=== PATIENT | female | born 1995 | race Caucasian/White ===

== ENCOUNTER → 2024-03-21 | Outpatient (CLI) | payer BC, SELFPAY ==
[2024-03-21 12:12] LABS: Absolute Lymphocyte Count 1.58 X10^3/uL (0.83-4.51); Absolute Neutrophil Count 5.2 X10^3/uL (2.0-7.7); Basophil# 0.04 X10^3/uL; Basophil% 0.5 % (0-1); Eosinophil# 0.42 X10^3/uL; Eosinophils% 5.4 % (0-5); Hematocrit 35.1 % (37-47); Hemoglobin 12.3 g/dL (12.0-15.0); Lymphocyte # 1.58 X10^3/ul (0.83-4.51); Lymphocyte % 20.3 % (19-41); Mean Corpuscular Hgb 31.5 pg (27.0-32.0); Mean Corpuscular Volume 89.8 fL (81-99); Mean Platelet Vol. 11.1 fl (6.2-12.0); Monocyte# 0.53 X10^3/uL; Monocyte% 6.8 % (0-10); NRBC Flagged by Analyzer 0 % (0-5); Neutrophil # 5.18 X10^3/uL (2.7-7.7); Neutrophil % 66.5 % (47-70); Platelet Count 206 K/mm3 (150-450); RBC Distribution Width CV 12.2 % (11.6-14.6); RBC Distribution Width SD 39.9 fl (35.1-43.9); Red Blood Count 3.91 M/mm3 (4.2-5.4); White Blood Count 7.8 K/mm3 (4.4-11.0)
[2024-03-21 13:08] LABS: HIV - WCH Non-Reactive (Nonreactive); Hepatitis B Surface Antigen Non-Reactive (Nonreactive); Hepatitis C Antibody Non-Reactive (Nonreactive); Rubella IgG Reactive (Nonreactive); Syphilis Antibodies Non-reactive
[2024-03-22 22:07] LABS: Chlamydia By Nucleic Acid AMP Negative (Negative); Gonococcus By Nucleic Acid AMP Negative (Negative)
[2024-03-25 14:42] LABS: HPV Reflexed? NOT INDICATED
== END | disposition home or self-care (01) ==
LOC: BWCLAB 09:57
PROVIDERS: PCP Pediatrics; Referring Provider Advanced Practice Midwife; Visit Provider Advanced Practice Midwife
DX: O99.891 Other specified diseases and conditions complicating pregnancy (principal); R87.618 Other abnormal cytological findings on specimens from cervix uteri; B97.7 Papillomavirus as the cause of diseases classified elsewhere; Z3A.00 Weeks of gestation of pregnancy not specified
CPT/HCPCS: 36415; 85025; 86703; 86762; 86780; 86803; 86850; 86900; 86901; 87086; 87088; 87340; 87491; 87591; 88175; G0145

== ENCOUNTER 2024-04-14 17:09 | Emergency (ER) | payer BC, SELFPAY ==
[2024-04-14 17:10] VITALS: BP 124/70; PULSE 88; RESP 18; TEMP 36.4; O2SAT 99
--- NOTE | 2024-04-14 17:21 | EDS_ITS ---
HPI HPI - Female History of Present Illness Chief Complaint: Vag Bld, Preg Detail of Chief Complaint: Post trimester vaginal bleeding Informant: patient Pain Pain: Positive for Pelvic Pain (Cramping, 45 minutes prior to presentation) Onset: Hours Context: Sudden Onset Timing: Continuous Quality: Positive for - (Cramping) Location: - (Pelvic/vaginal) Current Severity: Mild Maximum Severity: Mild Worsened by: - (Nothing) Relieved by: - (Nothing) Bleeding Issue: Positive for Vaginal bleeding; Negative for Passing clots or Passing tissue Onset: Hours (45 minutes prior to presentation. Patient was showering when she noted blood trickling down her leg.) Associated Symptoms Associated Symptoms: Positive for Frequency; Negative for Dysuria, Urgency or Hematuria Test: Positive Sexually: Positive for Active Control: No control P: 0 Ab: 0 Narrative Narrative: Patient is a 28-year-old G1, P0 Ab0 female who is approximately 13 weeks gestation. She had a ultrasound at Dr. Cannon/Migue's office that revealed a single live intrauterine . Patient has a positive blood. This was determined after reviewing prior records. There is no history of STI. There is no history of endometriosis. There is history of ovarian cyst. Patient denies fever, chills night sweats. Patient has shortness of breath orthostatic symptoms. She does report mild cramping pain. She thought that was due to the way she was sitting in the car. She contacted OB on-call. She spoke with practitioner Freeman who recommended she come to the emergency department. Prior similar symptoms: No Recent Illness/Hospitalization: No PFSH PFSH Medical History no medical history no medical history Home Medications ?Medication ?Instructions ?Recorded ?Last Taken ?Type multivitamin no.47-iron fum 27 cap PO 03/05/24 Unknown History mg-folate no.1 1 mg-dha 300 mg capsule (PNV-DHA) Allergy/AdvReac Type Severity Reaction Status Date / Time No Known Allergies Allergy Verified 04/14/24 17:10 Family History Grandmother Cancer, Onset Age: 50 Paternal cervical cancer Diabetes Maternal Dementia, Onset Age: 78 Maternal Grandfather Cancer, Onset Age: 68 Paternal Pancreatic Diabetes, Onset Age: 60 Maternal Aunt Breast cancer, Onset Age: 45 Paternal Mother Fibromyalgia Psoriasis Cancer, Onset Age: 45 Skin cancer- melanoma Father Cancer, Onset Age: 50 skin- basal cell Surgical History [employer] teeth extracted Social History adopted: No household members: spouse and family current occupational status: employed current occupation: interior design current occupational exposures/hazards: No pets and animals: Yes (Avoid litter box) pets and animals: cat(s) and dog(s) history of recent travel: No sexually active: Yes Smoking Status: Never smoker alcohol intake: never substance use type: does not use well-balanced diet: about half the time caffeine: No eating out: rarely or never during the past year weight has: decreased > 10 lbs what type of physical activity do you participate in: other details: crossfit- modified frequency: 3-4 times per week duration: 45-60 minutes/day rubin/bahai: None seatbelt use: always do you feel safe at home: Yes additional social history: - [employer] ROS ROS ED Constitutional Constitutional ED: Denies chills or fever(s) Cardiovascular Cardiovascular: Denies chest pain or palpitations Respiratory/Chest Respiratory/Chest: Denies cough, dyspnea or dyspnea on exertion Gastrointestinal Gastrointestinal: Denies abdominal pain, nausea or vomiting Genitourinary Genitourinary ED: Reports urinary frequency and other Details: Positive vaginal bleeding. No clots noted. ; Denies dysuria or hematuria Musculoskeletal Musculoskeletal: Denies arthralgias or myalgias Integumentary Denies rash Neurologic Neurologic: Denies weakness Hematologic/Lymphatic Hematologic/Lymphatic: Denies easy bleeding or easy bruising EXAM Physical Exam Const Vital Signs: 04/14/24 17:10 04/14/24 19:09 Temperature 97.6 F L Temperature Source Temporal Pulse Rate 88 89 Respiratory Rate 18 16 Blood Pressure 124/70 H 117/57 L Blood Pressure Mean 88 77 Pulse Ox 99 98 Oxygen Delivery Method Room Air Room Air Positive well nourished and well developed Constitutional Narrative: Patient is slightly anxious. Vital signs are normal. General Appearance ED: well developed and NAD; Negative for pallor HEENT Reports moist mucous membranes HEENT Narrative: Head is atraumatic and normocephalic. Eyes PERRL and EOMs intact bilaterally General Eye ED: Negative for pale conjunctiva or scleral icterus Neck no lymphadenopathy, supple and no JVD Resp normal respiratory effort and clear to auscultation bilaterally Cardio regular rate, regular rhythm, S1 normal heart sound, no murmurs and no JVD GI normal to inspection, nondistended, normoactive bowel sounds, soft to palpation, non-tender, non-distended and no masses Extremity normal to inspection and full ROM General Extremety ED: Negative for edema General Extremity: Negative for edema Neuro oriented x3 and CN's II-XII intact bilaterally Neuro Narrative: Gait observed and normal. Sensorium / Orientation: alert Psych Mood & Affect: anxious Skin no rashes or lesions noted and no wounds General Skin Exam: Negative for jaundice or pallor MDM MDM MDM Narrative Medical decision making narrative: Patient with first trimester bleeding. Review of records from March 21 revealed that she has a single live and uterine . Quantitative hCG was not done at that time. Patient does have a positive blood. Patient's bleeding started 45 minutes prior to presentation. Will perform pelvic exam and determine the and. Will have nurse check for heart tones. Spoke with psychometrist Deepthi Millard. She informing that she did not tell the patient she would get an ultrasound. She told me that we will check heart tones and probably do a bedside ultrasound. Explained again that there was someone critical and reason there was a delay. They are now understanding. heart tones were 162. Transabdominal bedside ultrasound performed by me reveals a heartbeat of 1 50-1 60. There is a single live intrauterine noted. There is no obvious subchorionic psychometrist Deepthi Millard was informed of my bedside ultrasound report. She will call patient later this evening. This was conveyed to the patient and her mother. Lab Data Attestation: I reviewed the patient's lab results. Lab results narrative: CBC is unremarkable. Patient's quantitative hCG is 88,027 which corresponds with her dates. Labs: Laboratory Results - last 24 hr 04/14/24 17:29 WBC 9.2 RBC 3.90 L Hgb 12.4 Hct 35.1 L MCV 90.0 MCH 31.8 MCHC 35.3 RDW Std Deviation 41.1 RDW Coeff of Esther 12.5 Plt Count 193 MPV 10.4 Immature Gran % (Auto) 0.500 Neut % (Auto) 73.7 H Lymph % (Auto) 17.0 L [place] % (Auto) 5.7 Eos % (Auto) 2.7 Baso % (Auto) 0.4 Absolute Neuts (auto) 6.7 Absolute Lymphs (auto) 1.56 Nucleated RBC % 0 HCG, Quant 45699 H Treatment and Re-Evaluation Narrative: Patient had a transabdominal ultrasound which reveals a single live intrauterine with a heart rate of 1 50-1 60. There is no obvious subchorionic hemorrhage. Patient was informed I do not have the skill set or capability with a transabdominal ultrasound to determine if there is any abnormality of the cervix. They understand this. They have an appointment to be seen later. Discharge Plan Triage Chief Complaint: Vag Bld, Preg ED Provider: Indio Kumar Dx/Rx/DC Orders Clinical Impression: Vaginal bleeding in patient after first trimester, HPV (human papilloma virus) infection, Abnormal Papanicolaou smear of cervix with positive human papilloma virus (HPV) test Instructions: Miscarriage Threatened Prescriptions: No Action PNV-DHA 27 mg iron-1 mg -300 mg capsule PO Primary Care Provider: Zelda Moura Referrals: Sophy Antony DO [Med Staff - Active Staff] - Keep Bhavna appointment Zelda Moura MD [Primary Care Provider] - Activity Restrictions/Additional Instructions: Reasons to return: Vaginal bleeding with change of pad every hour x 4 hours Passing clots that are concerning to you If you have significant bleeding with gush of blood call 911 Pelvic rest. No pelvic activity as long as you have vaginal bleeding. Print Language: Ukrainian Disposition Disposition: Home, Self Care
[2024-04-14 17:40] LABS: Absolute Lymphocyte Count 1.56 X10^3/uL (0.83-4.51); Absolute Neutrophil Count 6.7 X10^3/uL (2.0-7.7); Basophil# 0.04 X10^3/uL; Basophil% 0.4 % (0-1); Eosinophil# 0.25 X10^3/uL; Eosinophils% 2.7 % (0-5); Hematocrit 35.1 % (37-47); Hemoglobin 12.4 g/dL (12.0-15.0); Lymphocyte # 1.56 X10^3/ul (0.83-4.51); Mean Corp Hgb Conc 35.3 g/dL (32-36); Mean Corpuscular Hgb 31.8 pg (27.0-32.0); Mean Platelet Vol. 10.4 fl (6.2-12.0); Monocyte# 0.52 X10^3/uL; Monocyte% 5.7 % (0-10); NRBC Flagged by Analyzer 0 % (0-5); Neutrophil # 6.74 X10^3/uL (2.7-7.7); Neutrophil % 73.7 % (47-70); Platelet Count 193 K/mm3 (150-450); RBC Distribution Width CV 12.5 % (11.6-14.6); RBC Distribution Width SD 41.1 fl (35.1-43.9); White Blood Count 9.2 K/mm3 (4.4-11.0)
[2024-04-14 18:41] LABS: hCG Titer Quant., Serum 88027 mIU/mL (1-3)
[2024-04-14 19:09] VITALS: BP 117/57; PULSE 89; RESP 16; O2SAT 98
--- NOTE | 2024-04-14 19:10 | ED.RN ---
Pts mother came out and asked to speak to the supervisor nurse. I spoke to mom and pt. Pt was tearful and stated that she really didn't want the pelvic exam and that they were told from the store loss prevention manager that they would do an ultrasound. I explained that sometimes after the pelvic they decide whether or not to do an US or not. Pt stated that she isn't bleeding as much at this point. I did FHT and it was 165. Dr Kumar is going to talk to the OB provider and do a bedside US. Pt and mom were ok with this plan.
[2024-04-14 19:17] VITALS: BMI 27.8
[2024-04-14 19:33] VITALS: BP 111/74; PULSE 91; RESP 18; TEMP 36.6; O2SAT 99
== END 2024-04-14 19:35 | disposition home or self-care (01) ==
PROVIDERS: Emergency Provider Emergency Medicine; PCP Pediatrics; Visit Provider Emergency Medicine
DX: O20.9 Hemorrhage in early pregnancy, unspecified (principal); O99.891 Other specified diseases and conditions complicating pregnancy; R87.618 Other abnormal cytological findings on specimens from cervix uteri; O98.511 Other viral diseases complicating pregnancy, first trimester; R87.811 Vaginal high risk human papillomavirus (HPV) DNA test positive; Z3A.13 13 weeks gestation of pregnancy
CPT/HCPCS: 84702; 85025; 99282

== ENCOUNTER → 2024-07-22 | Outpatient (CLI) | payer BC, SELFPAY ==
[2024-07-22 10:24] LABS: Absolute Lymphocyte Count 1.57 X10^3/uL (0.83-4.51); Absolute Neutrophil Count 6.9 X10^3/uL (2.0-7.7); Basophil# 0.03 X10^3/uL; Basophil% 0.3 % (0-1); Eosinophils% 4.2 % (0-5); Hematocrit 30.5 % (37-47); Hemoglobin 10.4 g/dL (12.0-15.0); Lymphocyte # 1.57 X10^3/ul (0.83-4.51); Lymphocyte % 16.5 % (19-41); Mean Corp Hgb Conc 34.1 g/dL (32-36); Mean Platelet Vol. 10.6 fl (6.2-12.0); Monocyte# 0.56 X10^3/uL; Monocyte% 5.9 % (0-10); NRBC Flagged by Analyzer 0 % (0-5); Neutrophil # 6.89 X10^3/uL (2.7-7.7); Neutrophil % 72.4 % (47-70); Platelet Count 178 K/mm3 (150-450); RBC Distribution Width CV 12.6 % (11.6-14.6); RBC Distribution Width SD 41.6 fl (35.1-43.9); Red Blood Count 3.35 M/mm3 (4.2-5.4); White Blood Count 9.5 K/mm3 (4.4-11.0)
[2024-07-22 11:07] LABS: Glucose Challenge Gest 1H 50g 148 mg/dL (70-140); Syphilis Antibodies Nonreactive (Nonreactive)
[2024-07-23 23:22] LABS: HIV Nonreactive (Nonreactive)
== END | disposition home or self-care (01) ==
LOC: BWCLAB 10:06
PROVIDERS: Obstetrics & Gynecology; PCP Pediatrics; Visit Provider Registered Nurse
DX: Z34.00 Encounter for supervision of normal first pregnancy, unspecified trimester (principal)
CPT/HCPCS: 36415; 82950; 85025; 86703; 86780

== ENCOUNTER → 2024-07-24 | Outpatient (CLI) | payer BC, SELFPAY ==
[2024-07-24 11:23] LABS: Glucose GTT-Gestation. Fasting 81 mg/dL (<105)
[2024-07-24 12:02] LABS: Glucose GTT-Gestational 1 Hr 156 mg/dL (<190)
[2024-07-24 13:26] LABS: Glucose GTT-Gestational 2 Hr 154 mg/dL (<165)
[2024-07-24 14:16] LABS: Glucose GTT-Gestational 3 Hr 69 L (<145)
== END | disposition home or self-care (01) ==
PROVIDERS: PCP Pediatrics; Referring Provider Obstetrics & Gynecology; Visit Provider Obstetrics & Gynecology
DX: O99.810 Abnormal glucose complicating pregnancy (principal); Z3A.00 Weeks of gestation of pregnancy not specified
CPT/HCPCS: 36415; 82951; 82952

== ENCOUNTER → 2024-09-05 | Outpatient (CLI) | payer BC, SELFPAY ==
[2024-09-05 12:23] LABS: Absolute Lymphocyte Count 1.89 X10^3/uL (0.83-4.51); Absolute Neutrophil Count 7.1 X10^3/uL (2.0-7.7); Basophil# 0.04 X10^3/uL; Basophil% 0.4 % (0-1); Eosinophil# 0.37 X10^3/uL; Eosinophils% 3.6 % (0-5); Hematocrit 33.8 % (37-47); Hemoglobin 11.3 g/dL (12.0-15.0); Lymphocyte # 1.89 X10^3/ul (0.83-4.51); Lymphocyte % 18.4 % (19-41); Mean Corp Hgb Conc 33.4 g/dL (32-36); Mean Corpuscular Volume 92.6 fL (81-99); Mean Platelet Vol. 11.1 fl (6.2-12.0); Monocyte# 0.78 X10^3/uL; Monocyte% 7.6 % (0-10); NRBC Flagged by Analyzer 0 % (0-5); Neutrophil # 7.08 X10^3/uL (2.7-7.7); Neutrophil % 68.9 % (47-70); Platelet Count 192 K/mm3 (150-450); RBC Distribution Width CV 14.3 % (11.6-14.6); RBC Distribution Width SD 45.9 fl (35.1-43.9); Red Blood Count 3.65 M/mm3 (4.2-5.4); White Blood Count 10.3 K/mm3 (4.4-11.0)
== END | disposition home or self-care (01) ==
PROVIDERS: Obstetrics & Gynecology; PCP Pediatrics; Referring Provider Advanced Practice Midwife; Visit Provider Advanced Practice Midwife
DX: D64.9 Anemia, unspecified (principal)
CPT/HCPCS: 36415; 85025

== ENCOUNTER → 2024-09-23 | Outpatient (CLI) | payer BC, SELFPAY | END | disposition home or self-care (01) | LOC: LABSPEC 10:40 | PROVIDERS: PCP Pediatrics; Referring Provider Obstetrics & Gynecology; Visit Provider Obstetrics & Gynecology | DX: Z34.03 Encounter for supervision of normal first pregnancy, third trimester (principal) | CPT/HCPCS: 87081 ==